=== PATIENT | female | born 1995 | race Caucasian/White ===

== ENCOUNTER 2019-10-20 19:39 | Observation (INO) ==
[2019-10-20 20:33] LABS: BASO# 0.02 X1000 (0.0-0.2); BASO% 0.2 % (0.0-0.8); EOS# 0.01 X1000 (0.0-0.7); EOS% 0.1 % (0.0-10.0); HEMATOCRIT 37.7 % (37.0-47.0); IMM GRAN# 0.02 X1000 (0.0-0.04); IMM GRAN% 0.2 % (0.0-0.5); LYMPH# 1.83 X1000 (1.2-3.4); LYMPH% 21.7 % (20.5-51.1); MCH 26.7 PG (27-31); MCHC 31.8 g/dL (33-37); MONO# 0.48 X1000 (0.11-0.59); MONO% 5.7 % (1.7-9.3); MPV 10.4 FL (7.4-10.4); NEUT# 6.08 X1000 (1.4-6.5); NEUT% 72.1 % (42.2-75.2); PLT 233 X1000 (130-400); RBC 4.49 XMIL (4.2-5.4); RDW 13.3 % (11.5-14.5); WBC 8.44 X1000 (4.8-10.8)
--- NOTE | 2019-10-20 20:37 | PROVIDER DOCUMENTATION ---
This chart was entered by Debbie Uriarte Scribe, acting as scribe for Osbaldo Salmon MD. [id number] Abuse/Overdose - General Chief Complaint: Overdose Stated Complaint: INGESTION Time Seen by Provider: 10/20/19 20:06 Source: patient Allergies/Adverse Reactions: Allergies Allergy/AdvReac Type Severity Reaction Status Date / Time No Known Allergies Allergy Verified 10/20/19 19:58 Home Medications: Home Medication List Medication Instructions Recorded Confirmed Last Taken Type Buspirone HCl 7.5 mg PO DAILY 10/20/19 10/20/19 Unknown History - History of Present Illness-Drug/Alcohol Nature of Presenting Problem: 24 yowf presents w/ to er w/cc OD at 1900. pt sts she took about 34 7.5 buspar. pt sts she has never tried to do this before, has been more depressed lately. pt vomited within 5 mins of taking pills, "got scared," and is nauseous. no cp, sob, throat pain, fever, diarrhea or dysuria. no SI prev. nonsmoker, drinks alcohol occ. hx of anx/dep. pt is a student at [employer]. pcp is dr. jose This episode of drinking or use began:: 1 hour ago Severity: reports: moderate Situational problems related to:: reports: other (depression) Psychiatric Complaints: reports: depressed, ingestion, suicidal ideation Associated Symptoms: reports: nausea. denies: chest pain, diarrhea, EENT symptoms, fever/chills, shortness of breath Any injuries associated with this episode of intoxication?: No Similar Symptoms Previously?: No - Substance Abuse Substance Use: reports: none/never - Overdose Intentional drug overdose?: Yes List substance(s) ingested.: buspar 7.5 about 34 pills total Suicide Risk Assessment: depressed, organized plan, frightened friends-family Review of Systems - Adult - REVIEW OF SYSTEMS - ADULT Constitutional: reports: no symptoms reported. denies: chills, fever, night sweats Eyes: reports: no symptoms reported Ears, Nose, Mouth & Throat: reports: no symptoms reported. denies: hoarseness, throat pain, throat swelling Cardiovascular: reports: no symptoms reported. denies: chest pain, palpitations, syncope Respiratory: reports: no symptoms reported. denies: pleurisy, shortness of breath, wheezing Gastrointestinal: reports: see HPI, nausea. denies: abdominal pain, diarrhea, vomiting Genitourinary: reports: no symptoms reported. denies: dysuria, discharge, frequency Musculoskeletal: reports: no symptoms reported Integumentary: reports: no symptoms reported Neurological: reports: no symptoms reported Psychiatric: reports: see HPI, anxiety, anti-depressant use, depression, suicidal thoughts (OD buspar). denies: alcohol/drug dependence, insomnia Endocrine: reports: no symptoms reported Hematologic/Lymphatic: reports: no symptoms reported Allergic/Immunologic: reports: no symptoms reported All Other Systems: Reviewed and Negative Past History - Adult - PAST MEDICAL HISTORY-ADULT Review of Records: reports: Nursing Assessment Review, Medications Reviewed, S ocial history reviewed & non-contributory. Major Childhood Illnesses: reports: denies history Cardiovascular: reports: denies history Respiratory: reports: denies history Gastrointestinal: reports: denies history Obstetrical/Gynecological: reports: denies history Genitourinary: reports: denies history Musculoskeletal: reports: denies history Neurological: reports: denies history Psychiatric: reports: anxiety, depression Endocrine/Immune: reports: denies history Other Conditions: reports: denies history - PRIOR SURGERIES/PROCEDURES Surgical/Procedure History: reports: none - IMMUNIZATION STATUS Childhood Immunizations: See Nurse Assessment Flu Vaccine: See Nurse Assessment - FAMILY HISTORY Family History: reviewed, not pertinent - SOCIAL HISTORY Smoking: non-smoker Substance Use: alcohol Alcohol Use Frequency: occasionally Physical Exam-General - PHYSICAL EXAM-ADULT Initial Vital Signs Reviewed: Yes - CONSTITUTIONAL General Appearance: alert, mild distress. negative: cachetic, lethargic, slow to respond - EYES Eyes: PERRL/EOMI - HEAD, EARS, NOSE, MOUTH & THROAT HENMT: normocephalic/atraumatic, moist mucous membranes - NECK Neck: non-tender, full range of motion, supple, normal inspection - RESPIRATORY Respiratory: chest non-tender, lungs clear, normal breath sounds - CARDIOVASCULAR Cardiovascular: normal peripheral pulses, no edema, no gallop, no JVD, no murmur , tachycardia. negative: regular rate, rhythm, extra beats, friction rub, irregularly irregular - GASTROINTESTINAL (ABDOMEN) Abdominal Exam: normal bowel sounds, non tender, soft - LYMPHATIC Lymphatic: no adenopathy - MUSCULOSKELETAL Back Exam: normal inspection Extremity: normal range of motion, non-tender, normal inspection - SKIN Integumentary: normal color, normal turgor, warm/dry - NEUROLOGIC Neurologic: stock shipper II-XII nml as tested, grossly normal, no motor/sensory deficits - PSYCHIATRIC Psych/Mental Status: normal thought content, normal thought process, oriented x 3, depressed affect. negative: normal mood/affect, disoriented x 3, paranoid, tearful Progress - PLAN OF CARE/RESULTS Progress/Plan/Lab Results: Vital Signs - 8 hr 10/20/19 19:49 Temperature 98.2 F Pulse Rate 125 H Respiratory Rate 20 Blood Pressure 116/73 O2 Sat by Pulse Oximetry 99 Bedside Urine ED: Urine Bedside Start: 10/20/19 20:05 Freq: NOW Status: Active Protocol: Activity Type Activity Date Activity User E-Sign Co-Sign Detail Recorded Client Recorded Date Recorded By Document 10/20/19 20:18 [id number] 10/20/19 20:19 [id number] 10/20/19 20:18 Point of Care [Bedside Point of Care] -Lot # [id number] - Results Negative -Control Line Visible? Yes ED: Urine Bedside Start: 10/20/19 20:06 Freq: ORDERED Status: Complete Protocol: Activity Type Activity Date Activity User E-Sign Co-Sign Detail Recorded Client Recorded Date Recorded By Edit Status 10/20/19 20:21 [id number] Active=>Complete [id number] 10/20/19 20:21 [id number] Laboratory Results - last 24 hr 10/20/19 10/20/19 10/20/19 20:16 20:19 20:19 WBC 8.44 RBC 4.49 Hgb 12.0 Hct 37.7 MCV 84.0 MCH 26.7 L MCHC 31.8 L RDW Std Deviation 13.3 Plt Count 233 MPV 10.4 Immature Gran % (Auto) 0.2 Neut % (Auto) 72.1 Lymph % (Auto) 21.7 [place] % (Auto) 5.7 Eos % (Auto) 0.1 Baso % (Auto) 0.2 Immature Gran # (Auto) 0.02 Neut # (Auto) 6.08 Lymph # (Auto) 1.83 [place] # (Auto) 0.48 Eos # (Auto) 0.01 Baso # (Auto) 0.02 Sodium 138 Potassium 2.9 L Chloride 102 Carbon Dioxide 20 L Anion Gap 16 BUN 9 Creatinine 0.6 Estimated GFR/1.73 m2 > 60 BUN/Creatinine Ratio 15 Glucose 93 Calculated Osmolality 274 Calcium 8.9 Total Bilirubin 0.30 AST 21 ALT 10 Alkaline Phosphatase 42 Total Protein 7.1 Albumin 4.4 Globulin 3.0 Albumin/Globulin Ratio 2.0 Salicylates < 3.00 L Urine Opiates Screen NONE DETECTED Ur Oxycodone Screen NONE DETECTED Urine Methadone Screen NONE DETECTED U Propoxyphene Qual NONE DETECTED Acetaminophen < 1.2 L Ur Barbituates Screen NONE DETECTED Ur Tricyclics Screen NONE DETECTED Ur Phencyclidine Scrn NONE DETECTED Ur Amphetamines Screen NONE DETECTED U Methamphetamines Scrn NONE DETECTED U Benzodiazepines Scrn NONE DETECTED Urine Cocaine Screen NONE DETECTED U Cannabinoids Screen NONE DETECTED Plasma/Serum Ethyl Alc 10/20/19 20:19 WBC RBC Hgb Hct MCV MCH MCHC RDW Std Deviation Plt Count MPV Immature Gran % (Auto) Neut % (Auto) Lymph % (Auto) [place] % (Auto) Eos % (Auto) Baso % (Auto) Immature Gran # (Auto) Neut # (Auto) Lymph # (Auto) [place] # (Auto) Eos # (Auto) Baso # (Auto) Sodium Potassium Chloride Carbon Dioxide Anion Gap BUN Creatinine Estimated GFR/1.73 m2 BUN/Creatinine Ratio Glucose Calculated Osmolality Calcium Total Bilirubin AST ALT Alkaline Phosphatase Total Protein Albumin Globulin Albumin/Globulin Ratio Salicylates Urine Opiates Screen Ur Oxycodone Screen Urine Methadone Screen U Propoxyphene Qual Acetaminophen Ur Barbituates Screen Ur Tricyclics Screen Ur Phencyclidine Scrn Ur Amphetamines Screen U Methamphetamines Scrn U Benzodiazepines Scrn Urine Cocaine Screen U Cannabinoids Screen Plasma/Serum Ethyl Alc Orders Category Date Time Status Admit - [facility] Routine [id number] 10/20/19 21:21 Active Cardiac Monitoring DIRECTED Care 10/20/19 20:03 Active ED: Urine Bedside ORDERED Care 10/20/19 20:06 Completed Misc. NRSG Communication Order DIRECTED Care 10/20/19 20:05 Active Neurological Check Q4H Care 10/20/19 21:22 Active Resuscitation Status Routine Care 10/20/19 21:21 Ordered Urine Preg [ED: Urine Bedside] NOW Care 10/20/19 20:05 Active Vital Signs Order ROUTINE Care 10/20/19 21:21 Active Z-Document. for Tele Applied ORDERED Care 10/20/19 21:22 Active NPO Diet 10/20/19 21:22 Active ACETAMINOPHEN [TDM] Stat Lab 10/20/19 20:19 Completed ALCOHOL BLOOD Stat Lab 10/20/19 20:19 Completed CBC WITH ELECTRONIC DIFF [HEME] Stat Lab 10/20/19 20:19 Completed CMP [COMPREHENSIVE METABOLIC PANEL] [CHEM] Stat Lab 10/20/19 20:19 Completed SALICYLATES [TDM] Stat Lab 10/20/19 20:19 Completed URINE DRUG SCREEN PL Stat Lab 10/20/19 20:16 Completed Telemetry [OM.EQ] Routine Oth 10/20/19 21:21 Active EKG [EKG] Stat Ther 10/20/19 20:03 Ordered Transfer/Admit Order [TRANSFER] Routine Transfer 10/20/19 21:23 Ordered Poison control recommends cardiac monitoring until patient is asymptomatic which could last up to 10-12 hours, patient will need monitoring if she is tachycardic Result Diagrams: 10/20/19 20:19 10/20/19 20:19 - EKG 1 Time of EKG reading by physician:: 20:04 EKG Read and Signed by:: Osbaldo Salmon EKG Interpretation (*Must complete 3 of following elements*): Abnormal Rate: 112 Rhythm: ST [place]: normal QRS: normal AR Interval: normal ST Wave: non-specific ST changes (nonspecific ST abnormality) - CONSULTS/PCP/HOSPITALIST Notification #1 *Consult/PCP/Hospitalist*: Poison control Time Discussed: 21:18 Reason/Comments: duration of 10-12 hours for Buspar, observe until asymptomatic HR<100 Consult Disposition: other (watch for drowsiness and tachycardia, get aceteomenophin and ASA levels every 4 hrs. 2124 poision control contacted again and advised to observe 10-12 hrs.) #2 Consult: Dr. Robles Time Discussed: 21:21 Consult Disposition: other (call house sup for admit) Departure - Departure Date of Disposition Decision: 10/20/19 Time of Disposition Decision: 21:29 DIAGNOSIS: Suicidal ideation Drug overdose Qualifiers: Encounter type: initial encounter Injury intent: intentional self-harm Qualified Code(s): T50.902A - Poisoning by unspecified drugs, medicaments and biological substances, intentional self-harm, initial encounter Disposition: ADMITTED INPATIENT 09 Certified Medical Emergency: Emergent Condition: Stable Referrals and Follow-Ups: Tayler Jose MD [Primary Care Provider] - - Critical Care Note This patient required my direct & personal management of CC.: No Attestation - Physician/ LOVE Attestation Patient care was provided by Advanced Practice Provider:: No The physician spent face to face time with patient:: Yes Advanced Practice Provider documentation review:: Supervising physician onsite and consulted in the evaluation and care of this patient. The physician did have a face to face encounter with the patient. This chart was documented by the indicated scribe, (Debbie Uriarte Scribe) and accurately reflects the services I performed and decisions made by me, Osbaldo Salmon MD, as attested by the provider's signature.
[2019-10-20 20:45] LABS: UR AMPHETAMINES QUAL NONE DETECTED (NONE DETECT); UR BARBITUATES QUAL NONE DETECTED (NONE DETECT); UR BENZODIAZEPIN QUAL NONE DETECTED (NONE DETECT); UR CANNABINOIDS QUAL NONE DETECTED (NONE DETECT); UR COCAINE QUAL NONE DETECTED (NONE DETECT); UR METHADONE QUAL NONE DETECTED (NONE DETECT); UR METHAMPHETAMINE QUAL NONE DETECTED (NONE DETECT); UR OPIATES QUAL NONE DETECTED (NONE DETECT); UR OXYCODONE QUAL NONE DETECTED (NONE DETECT); UR PCP QUAL NONE DETECTED (NONE DETECT); UR PROPOXYPHENE QUAL NONE DETECTED (NONE DETECT); UR TCA QUAL NONE DETECTED (NONE DETECT)
[2019-10-20 20:56] LABS: ACETAMINOPHEN < 1.2 ug/mL (10-30); AGAP 16; ALBUMIN 4.4 g/dL (3.5-5.0); ALKALINE PHOSPHATASE 42 U/L (32-104); BUN 9 mg/dL (8-22); CALCIUM 8.9 mg/dL (8.8-10.2); CHLORIDE 102 mmol/L (98-107); COSMO 274; CREATININE 0.6 mg/dL (0.5-0.9); ESTIMATED GFR > 60; GLUCOSE 93 mg/dL (70-104); GOT 21 U/L (10-30); GPT 10 U/L (10-36); POTASSIUM 2.9 mmol/L (3.5-5.1); SALICYLATES < 3.00 mg/dL (3-10); SODIUM 138 mmol/L (136-145); TCO2 20 mmol/L (25-35); TOTAL PROTEIN 7.1 g/dL (6.3-8.3)
[2019-10-20] MEDS ORDERED: KLOR-CON PO ONE (22:19)
[2019-10-20] MEDS ORDERED: ZOFRAN IV PRN (23:48)
[2019-10-21 00:13] LABS: ACETAMINOPHEN < 1.2 ug/mL (10-30); SALICYLATES < 3.00 mg/dL (3-10)
--- NOTE | 2019-10-21 00:30 | EKG Report ---
Test Performed on : 10/20/2019 8:03:40 PM Test Reason : pain Blood Pressure : / mmHG Vent. Rate : 112 BPM Atrial Rate : 112 BPM P-R Int : 150 ms QRS Dur : 066 ms QT Int : 294 ms P-R-T Axes : 072 075 037 degrees QTc Int : 401 ms Sinus tachycardia. Nonspecific ST abnormality Abnormal ECG No previous ECGs available Unconfirmed Result
[2019-10-21] MEDS: NS 1,000 ML IV SCH ×3 (01:36→22:23)
--- NOTE | 2019-10-21 03:02 | HISTORY AND PHYSICAL ---
PRIMARY CARE PHYSICIAN: Dr. Jose. CHIEF COMPLAINT: Drug overdose. HISTORY OF PRESENTING ILLNESS: A 24-year-old female with a history of anxiety disorder who initially had presented to [facility] after she took about 30 or more pills of BuSpar. The patient states that she was getting more depressed lately and she impulsively took the medications. She was seen at [facility] and her case was discussed with Poison Control who recommended supportive treatment and observation for the next 24 hours. However, due to lack of ICU beds available there she was transferred to [facility] for further management. At the time of my examination, patient denied any headache, fever, chills, chest pain, shortness of breath or weight changes. States that initially she did have some suicidal ideations, however, she does not have it anymore. PAST MEDICAL HISTORY: Includes anxiety, depression. PAST SURGICAL HISTORY: None. ALLERGIES: No known drug allergies. CURRENT MEDICATIONS: BuSpar [*]mg daily. SOCIAL HISTORY: No history of smoking. Admits to social alcohol use. Denies any illicit drug use. FAMILY HISTORY: No history of coronary artery disease. REVIEW OF SYSTEMS: Fourteen point review of systems is as listed in HPI. Other systems negative. PHYSICAL EXAMINATION: GENERAL: Cooperative, friendly female. She is resting more comfortably now. VITAL SIGNS: Temperature 99.1 degrees, pulse 115, respiration 15 blood pressure 135/77. HEENT: Atraumatic, normocephalic. Extraocular movements intact. PERRLA. NECK: No masses. CHEST: Clear to auscultation. CARDIOVASCULAR: Regular rate and rhythm. ABDOMEN: Soft. Positive bowel sounds. EXTREMITIES: No edema. NEUROLOGIC: She is awake, alert, oriented x3. GENITOURINARY: No bladder distention. SKIN: Warm. LABORATORIES AND STUDIES: WBC is 8.44, hemoglobin 12.0, hematocrit 37.0, platelets 233,000. Sodium 138, potassium 2.9, chloride 102, CO2 is 20, BUN is 9, creatinine is 0.6, glucose is 93. ASSESSMENT: This is a 24-year-old female with a history anxiety disorder and depression. Had initially presented to [facility] after she took about 30 or more pills of BuSpar. She was evaluated there. Her case was discussed with Poison Control who recommended patient be admitted and monitored over the next 24 hours. 1. Drug overdose with BuSpar. 2. Suicide attempt. 3. Depression. PLAN: 1. We will admit patient to ICU. 2. Continue with supportive care. 3. Monitor patient on telemetry. 4. Optimize electrolytes. 5. Consult Psychiatry. 6. We will continue to follow, reassess and make further recommendation based on patient's clinical course. cc: Win Robles MD
[2019-10-21] MEDS: TYLENOL PO PRN ×2 (08:07→21:06)
--- NOTE | 2019-10-21 09:27 | PROGRESS NOTE ---
DATE: 10/21/2019 SUBJECTIVE: The patient seems to be stable. Vital signs are stable. She is not complaining of numbness, dizziness, nausea, vomiting or diarrhea. No double vision. Mild headache, and she just took a Tylenol for that. She is completely awake, alert. She is answering all my questions. Her physical exam is basically benign. The only problem that she has been probably depressed and she has been through a stressful situation; apparently she took 30 pills or so of BuSpar. I will get new lab work today, and I will start feeding this patient. OBJECTIVE: Vital Signs: Temperature 99.2 degrees, pulse 87, respiratory rate 13, blood pressure 120/78, oxygen saturation 99 on room air. HEENT: Head normocephalic, no trauma. PERRLA. Neck: Neck is supple. No JVD. No masses. Central trachea. Chest: Clear to auscultation. No wheezing. No rales. Abdomen: Soft, nontender, nondistended. No hepatosplenomegaly. Extremities: No edema, no clubbing, no cyanosis. Neurological examination: The patient is awake, alert. She is oriented x3. She was crying a little bit during my physical exam. LABORATORY: Pending lab work today. Laboratory from yesterday stable, a little bit low potassium which has been replaced. Negative urine toxicology. Negative alcohol. ASSESSMENT AND PLAN: 1. Drug overdose with buspirone. She has no symptoms at this moment, just mild headache. I will recheck her comprehensive metabolic panel and electrolytes at this moment and also tomorrow. If she is doing fine, hopefully she can be evaluated by Psychiatric Department to see if she needs to be admitted to a psych unit for treatment. 2. Suicide attempt. Apparently this patient has been anxious and also depressed. I am not quite sure if this is the first time or not. 3. Depression and anxiety, as above. Tomorrow hopefully she will be evaluated by Psychiatric Department. cc: Ok Vila MD
[2019-10-21 09:50] LABS: BASO# 0.01 X1000 (0.0-0.2); BASO% 0.2 % (0.0-0.8); EOS# 0.01 X1000 (0.0-0.7); EOS% 0.2 % (0.0-10.0); HEMATOCRIT 35.7 % (37.0-47.0); HEMOGLOBIN 11.3 g/dL (12.0-16.0); LYMPH# 1.56 X1000 (1.2-3.4); LYMPH% 28.8 % (20.5-51.1); MCH 27.2 PG (27-31); MCHC 31.7 g/dL (33-37); MCV 85.8 FL (81-99); MONO# 0.39 X1000 (0.11-0.59); MONO% 7.2 % (1.7-9.3); MPV 10.3 FL (7.4-10.4); NEUT# 3.44 X1000 (1.4-6.5); NEUT% 63.6 % (42.2-75.2); PLT 185 X1000 (130-400); RBC 4.16 XMIL (4.2-5.4); RDW 13.5 % (11.5-14.5); WBC 5.41 X1000 (4.8-10.8)
[2019-10-21 10:44] LABS: AGAP 10; ALB/GLOB RATIO 1.5; ALBUMIN 3.7 g/dL (3.5-5.0); ALKALINE PHOSPHATASE 36 U/L (32-104); BUN 6 mg/dL (8-22); CALCIUM 8.7 mg/dL (8.8-10.2); CHLORIDE 107 mmol/L (98-107); COSMO 276; CREATININE 0.7 mg/dL (0.5-0.9); ESTIMATED GFR > 60; GLUCOSE 85 mg/dL (70-104); GOT 18 U/L (10-30); GPT 8 U/L (10-36); MAGNESIUM 1.7 mg/dL (1.5-2.7); PHOSPHORUS 3.3 mg/dL (2.7-4.5); POTASSIUM 3.8 mmol/L (3.5-5.1); SODIUM 140 mmol/L (136-145); TCO2 23 mmol/L (25-35); TOTAL BILIRUBIN 0.37 mg/dL (0.20-1.00); TOTAL PROTEIN 6.1 g/dL (6.3-8.3)
[2019-10-22 06:56] LABS: ALB/GLOB RATIO 1.6; ALBUMIN 3.7 g/dL (3.5-5.0); ALKALINE PHOSPHATASE 35 U/L (32-104); CK PROFILE 62 U/L (24-173); DIRECT BILIRUBIN < 0.10 mg/dL (0.00-0.20); GOT 17 U/L (10-30); GPT 8 U/L (10-36); MAGNESIUM 1.8 mg/dL (1.5-2.7); PHOSPHORUS 3.7 mg/dL (2.7-4.5); TOTAL BILIRUBIN 0.17 mg/dL (0.20-1.00)
--- NOTE | 2019-10-22 07:55 | PROGRESS NOTE ---
DATE: 10/22/2019 SUBJECTIVE: The patient seems to be stable. Vital signs are stable. She is not complaining of any symptoms today. She is just tired. OBJECTIVE: Vital Signs: Temperature 98.8 degrees, pulse 70, respiratory rate 14, blood pressure 112/65, oxygen saturation 98 on room air. HEENT: Head normocephalic, no trauma. PERRLA. Neck: Supple. No JVD. No masses. Central trachea. Chest: Clear to auscultation. No wheezing. No rales. Abdomen: Soft, nontender, nondistended. No hepatosplenomegaly. Extremities: No edema, no clubbing, no cyanosis. Neurological: The patient is awake, alert. She is oriented x3. No focal deficits. LABORATORY DATA: Phosphorus 3.7, magnesium 1.8, bilirubin 0.17, AST 17, ALT 8, alkaline phosphatase 35, albumin 3.7. ASSESSMENT AND PLAN: 1. Drug overdose with buspirone. No symptoms at this moment, she is just tired. Psychiatry Department will evaluate this patient today hopefully. 2. Suicide attempt, as above. She will be evaluated by Psychiatry Department to see if she qualifies for an inpatient or outpatient treatment. 3. Depression and anxiety. As per the patient, she has been really depressed and having a lot of stress. We will monitor for now. cc: Ok Vila MD
[2019-10-22] MEDS: TYLENOL PO PRN (08:54)
--- NOTE | 2019-10-22 13:21 | PROVIDER PROGRESS NOTE ---
- Subjective CC: initial psychiatric consultation on pt w/ suicide attempt by OD HPI: This is the initial psychiatric consultation on pt w/ suicide attempt by OD on Buspar. Pt is 24yo WF w/ psychiatric h/o JOANA and single MDE, admitted now to MICU following suicide attempt by OD on multiple Buspar 7.5mg. Pt has longstanding h/o struggles w/ generalized anxiety w/ particular triggers of social situations, finances, isolation, and academic demands. 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 Pt is in [employer] for gen ed recs for engineering major. Pt has been feeling depressed in mood w/ feelings of hopelessness & helplessness, plus sleep disruptions & negative ruminations. Pt has not struggled w/ MDD previously. Pt has also been severely anxious as aforementioned. Pt reports this was a impulsive act and she denies any prior suicide attempts. 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 Pt has only been treated locally by PCP and has seen a psychiatrist or therapist, but she is willing & interested in doing so. Pt neither evidences nor endorses any current or prior HI, psychosis, (hypo)sherman, or substance abuse. Pt does have DUI on Et[place] w/ suspension of license for 180 days but this appears incidental and not indicative of any broader EtOH abuse. Pt denies any family h/o suicide attempts or substance abuse issues. MEDS: reviewed in EMR. Only psychiatric medication is Buspar 7.5mg PO BID. Pt has not been tried on any SSRI. ALLERGIES: NKDA PFSH: as per HPI above ROS: comprehensive 12 point ROS conducted and negative for any acute physical complaints w/ psychiatric symptoms as per HPI above. Physical Exam Objective Vital Signs - 8 hr 10/22/19 06:01 10/22/19 07:01 10/22/19 08:00 Temperature 98.8 F Pulse Rate 70 94 H 69 Respiratory Rate 14 20 13 Blood Pressure 112/65 106/73 115/78 O2 Sat by Pulse Oximetry 98 98 99 10/22/19 08:01 10/22/19 09:01 02/04/20 10:01 Temperature Pulse Rate 69 63 83 Respiratory Rate 13 11 L 11 L Blood Pressure 115/78 107/73 110/76 O2 Sat by Pulse Oximetry 99 99 98 10/22/19 11:01 Temperature Pulse Rate 98 H Respiratory Rate 20 Blood Pressure 114/84 O2 Sat by Pulse Oximetry 100 - Constitutional General Appearance: alert, no apparent distress - PSYCHIATRIC Psych/Mental Status: other (Please see separate MSE section for details) Active Medications Generic Name Dose Route Start Last Admin Trade Name Freq PRN Reason Stop Dose Admin Acetaminophen 650 mg 10/21/19 01:10 10/22/19 08:54 Tylenol PO 650 mg Q6H PRN PRN Administration Fever or Pain Ondansetron HCl 4 mg 10/20/19 23:48 10/21/19 00:48 Zofran IV 4 mg Q6H PRN PRN Administration Nausea And Vomiting Bedside Urine ED: Urine Bedside Start: 10/20/19 20:05 Freq: NOW Status: Complete Protocol: Activity Type Activity Date Activity User E-Sign Co-Sign Detail Recorded Client Recorded Date Recorded By Document 10/20/19 20:18 [id number] 10/20/19 20:19 [id number] Edit Status 10/20/19 23:23 [id number] Active=>Complete [id number] 10/20/19 23:23 [id number] 10/20/19 20:18 Point of Care [Bedside Point of Care] -Lot # [id number] - Results Negative -Control Line Visible? Yes ED: Urine Bedside Start: 10/20/19 20:06 Freq: ORDERED Status: Complete Protocol: Activity Type Activity Date Activity User E-Sign Co-Sign Detail Recorded Client Recorded Date Recorded By Edit Status 10/20/19 20:21 [id number] Active=>Complete [id number] 10/20/19 20:21 [id number] Laboratory Results - last 24 hr 10/22/19 05:14 Phosphorus 3.7 Magnesium 1.8 Total Bilirubin 0.17 L Direct Bilirubin < 0.10 AST 17 ALT 8 L Alkaline Phosphatase 35 Creatine Kinase 62 Total Protein 6.0 L Albumin 3.7 Globulin 2.3 Albumin/Globulin Ratio 1.6 EKG indicates nml QTc - Assessment & Plan (1) JOANA (generalized anxiety disorder) Status: Acute Plan: Can resume Buspar 7.5mg PO BID for depression & anxiety. Recommend also starting Prozac 10mg PO QD for depression and anxiety. No indications for acute psychiatric hospitalization at this time. No indications for 1:1 sitter. Pt can d/c home once medically cleared w/ referral to [facility] for therapy and medication mgt. Intake number is [phone]. Thanks for the consultation. Please call w/ any questions or concerns. (2) Major depressive disorder, single episode, severe without psychotic features Status: Acute Plan: As per above. (3) Suicide attempt Status: Acute Plan: As per above. (4) Suicidal ideation Status: Acute Plan: As per above. Psychiatric Specialty Exam Allergies/Adverse Reactions: Allergies Allergy/AdvReac Type Severity Reaction Status Date / Time No Known Allergies Allergy Verified 10/20/19 19:58 Current Medications: Generic Name Dose Route Start Last Admin Trade Name Freq PRN Reason Stop Dose Admin Acetaminophen 650 mg 10/21/19 01:10 10/22/19 08:54 Tylenol PO 650 mg Q6H PRN PRN Administration Fever or Pain Ondansetron HCl 4 mg 10/20/19 23:48 10/21/19 00:48 Zofran IV 4 mg Q6H PRN PRN Administration Nausea And Vomiting Vital Signs: Temperature 98.8 F 10/22/19 08:00 Pulse Rate 98 H 10/22/19 11:01 Respiratory Rate 20 10/22/19 11:01 Blood Pressure 114/84 10/22/19 11:01 O2 Sat by Pulse Oximetry 100 10/22/19 11:01 General Appearance/Manner: Well Groomed, Appropriate Attire Musculoskeletal (Strength/Tone): Normal Musculoskeletal (Gait/Station): Normal Speech: Normal rate, Normal rhythm, Normal volume Language: Normal Mood: Anxious Affect: Full Range, Congruent with Mood Thought Processes: Linear/Goal Directed Associations: Normal Thought Content: No Evidence of SI/HI or Psychosis/Thought Disorder Orientation: Person, Place, Time, Situation Memory: Intact Recent, Intact Remote Fund of Knowledge: Intact Attention/Concentration: Good, Alert Insight/Judgment: Fair
[2019-10-22 13:53] VITALS: BP 144/99
[2019-10-22] MEDS ORDERED: BUSPAR PO SCH (21:00)
--- NOTE | 2019-10-23 04:35 | DISCHARGE SUMMARY ---
ADMISSION DATE: 10/20/2019 DISCHARGE DATE: 10/22/2019 DISCHARGE DIAGNOSES: 1. Drug overdose with buspirone, likely due to suicide attempt. 2. Depression and anxiety. HOSPITAL COURSE: A 24-year-old female with a past medical history of anxiety disorder, who initially had presented to [facility] after she took about 30 or more pills of buspirone, the patient states that she was getting more depressed lately and she impulsively took the medications. She was seen at [facility] and her case was discussed with [facility], who recommended supportive treatment and observation for the next 24 hours. However, due to the lack of ICU beds available there, she was transferred to [facility] for further management. At the time of the admission, the patient denied any headache, fever, chills, chest pain, shortness of breath or weight changes. She states that initially she did have some suicidal ideation. However, she does not have it any more, she was placed in the ICU and she received some IV fluids. She basically was stable and the vital signs and lab work were within normal limits, she was basically cleared for a medical standpoint and psychiatric department evaluated this patient,and they have decided to restart her BuSpar 7.5 mg p.o. b.i.d. for depression and anxiety, and he has recommended to start Prozac 10 mg p.o. daily for depression and anxiety as well. She has no indication for acute psychiatric hospitalization at this time. No indication for one-to-one sitter. The patient can be discharged home since she is medically cleared. She needs to follow up to [facility] for therapy and medication management, we are going to call to [phone]. The patient seems to be stable, she is tolerating p.o., vital signs are normal. Family members at the bedside. I do believe she has good support at home. PHYSICAL EXAMINATION: Vital signs: Temperature 98 degrees, respiratory rate 20, blood pressure 114/84, oxygen saturation 100% on room air. HEENT: Head normocephalic. No trauma. PERRLA. Neck: Supple. No JVD. No masses. Central trachea. Chest: Clear to auscultation. No wheezing. No rales. Abdomen: Soft, nontender, nondistended. No hepatosplenomegaly. Extremities: No edema, no clubbing, no cyanosis. Neurological: The patient is alert and oriented x3. No focal deficits. LABORATORY: From yesterday, WBC 5.4, hemoglobin 11.3, hematocrit 35.7, platelets 185,000. BMP from yesterday, sodium 140, potassium 3.8, chloride 107, bicarbonate 23, BUN 6, creatinine 0.7. Glucose 85, calcium 8.7. From today, phosphorus 3.7, magnesium 1.8. LFTs are normal. Protein 6 and albumin 3.7. DISCHARGE MEDICATIONS: Buspirone 7.5 mg p.o. b.i.d. and Prozac 10 mg p.o. q.a.m. TIME SPENT: Discharging this patient 20 minutes. cc: Ok Vila MD
[2019-10-23] MEDS ORDERED: PROZAC PO SCH (09:00)
== END 2019-10-22 14:15 | disposition home or self-care (01) ==
LOC: P.ED 19:39 → ICU 19:39 → INTOOBSV 19:40 → SUATTDRO 19:40 → OBSVTOIN 19:40
PROVIDERS: ATTEND Internal Medicine